=== PATIENT | male | born 2000 | race Caucasian/White ===

== ENCOUNTER 2020-01-03 07:45 | Outpatient (REF) | payer OTHER, SELFPAY ==
[2020-01-03 08:32] LABS: COVID-19 Test Negative (Negative)
== END 2020-01-03 07:46 | disposition home or self-care (01) ==
LOC: HO.EMPCOV 07:45
PROVIDERS: Visit Provider Internal Medicine
DX: Z20.828 Contact with and (suspected) exposure to other viral communicable diseases (principal)
CPT/HCPCS: 87635; C9803

== ENCOUNTER 2020-01-10 14:22 | Outpatient (REF) | payer OTHER, SELFPAY ==
[2020-01-10 14:44] LABS: COVID-19 Test Negative (Negative)
== END 2020-01-10 14:23 | disposition home or self-care (01) ==
LOC: HO.EMPCOV 14:22
PROVIDERS: Visit Provider Internal Medicine
DX: Z20.828 Contact with and (suspected) exposure to other viral communicable diseases (principal)
CPT/HCPCS: 87635; C9803

== ENCOUNTER 2020-01-24 12:13 | Outpatient (REF) | payer OTHER, SELFPAY ==
[2020-01-24 12:35] LABS: COVID-19 Test Negative (Negative); IDNOW Serial# 55D5AD1C
== END 2020-01-24 12:14 | disposition home or self-care (01) ==
LOC: HO.EMPCOV 12:13
PROVIDERS: Visit Provider Internal Medicine
DX: Z20.828 Contact with and (suspected) exposure to other viral communicable diseases (principal)
CPT/HCPCS: 87635; C9803

== ENCOUNTER 2020-04-26 14:47 | Outpatient (REF) | payer OTHER, SELFPAY ==
[2020-04-26 15:08] LABS: COVID-19 Test Negative (Negative); IDNOW Serial# 55D5AD1C
== END 2020-04-26 14:48 | disposition home or self-care (01) ==
LOC: HO.EMPCOV 14:47
PROVIDERS: Visit Provider Internal Medicine
DX: Z11.52 Encounter for screening for COVID-19 (principal)
CPT/HCPCS: 36415; 87635; C9803

== ENCOUNTER → 2021-12-03 09:43 | Outpatient (RCR) | payer OTHER, SELFPAY ==
[2019-12-27 08:22] LABS: COVID-19 Test Negative (Negative)
[2020-02-03 13:57] LABS: SARS-COV-2 PCR UMBRL NOT DETECTED
[2020-02-22 06:57] LABS: COVID-19 Test Negative (Negative)
[2020-03-06 07:06] LABS: COVID-19 Test Negative (Negative)
== END | disposition home or self-care (01) ==
LOC: HO.EMPCOV 12-27 07:50
PROVIDERS: Visit Provider Internal Medicine
DX: Z20.828 Contact with and (suspected) exposure to other viral communicable diseases (principal)
CPT/HCPCS: 36415; 87635; C9803; U0003